=== PATIENT | male | born 1960 | race Caucasian/White ===

== ENCOUNTER 2017-06-07 16:20 | Inpatient (IN) | payer MEDICARE, MEDICAID ==
[~2017-06-07] VITALS: Ht 165.1 cm; Wt 51.7 kg
--- NOTE | 2017-06-07 21:15 | NUR ---
ADMITTED PATIENT IN MED SURG FLOOR UNDER THE CARE OF Marlon WILSON, FROM [facility]. RECORD ALL BELONGINGS, PATIENT HAS TRACH, ILEOSTOMY WITH BAG, GT, SUPRAPUBIC CATH, AND PERMA CATH FOR DIALYSIS. ON GTF, PATIENT ALERT AND ORIENTED, WITH EPISODE OF ANXIETY BY YELLING AND SCREAMING. KEPT COMFORTABLE.
--- NOTE | 2017-06-07 21:15 | NUR ---
CALLED DR RAFIQ Mason VERY ORDERS.
[2017-06-07 21:29] VITALS: BP 103/69
[2017-06-07] MEDS ORDERED: IPRATROPIUM BROMIDE 0.5 MG/2.5 ML NEBU NEB PRN (22:30)
[2017-06-07] MEDS ORDERED: ACETAMINOPHEN 325 MG TABLET ONE (22:40)
[2017-06-07] MEDS ORDERED: VIT-6 PEG (22:43)
[2017-06-07] MEDS ORDERED: METO-295 PEG (22:43)
[2017-06-07] MEDS ORDERED: GABA-534 PEG (22:43)
[2017-06-07] MEDS ORDERED: POLY15DR27 OP (22:43)
[2017-06-07] MEDS ORDERED: ACET-2154 PEG (22:43)
[2017-06-07] MEDS ORDERED: PREG25CA GT (22:43)
[2017-06-07] MEDS ORDERED: ONDA4TAB5 GT (22:43)
[2017-06-07] MEDS ORDERED: METO25TA6 PEG (22:43)
[2017-06-07] MEDS ORDERED: ZINC220C8 PEG (22:43)
[2017-06-07] MEDS ORDERED: ASCO500W7 GT (22:43)
[2017-06-08] MEDS: GABAPENTIN 300 MG CAPSULE GT SCH ×4 (01:10→17:31)
[2017-06-08] MEDS: ACETAMINOPHEN 650 MG/20.3 ML LIQUID UDC GT PRN ×2 (01:12→21:47)
[2017-06-08] MEDS ORDERED: GABAPENTIN 300 MG CAPSULE ONE (01:19)
[2017-06-08 04:00] VITALS: BP 106/70
[2017-06-08] MEDS ORDERED: DEXTROSE 50% 50 ML DISP.SYRIN IV PRN (07:45)
[2017-06-08] MEDS ORDERED: NOVASOURCE RENAL 1000 ML LIQUID GT PRN (07:45)
--- NOTE | 2017-06-08 08:00 | NUR ---
IN BED AWAKE AND VERBALLY RESPONSIVE, NO SIGNS OF DISTRESS OR C/O PAIN WITH TF AT 65 ML/HR. OBSERVED
[2017-06-08] MEDS: INSULIN REGULAR, HUMAN 300 UNIT/3 ML VIAL SQ PRN (08:25)
[2017-06-08] MEDS ORDERED: ACETAMINOPHEN 325 MG TABLET PEG PRN (10:15)
[2017-06-08] MEDS: PREGABALIN 25 MG CAPSULE GT SCH ×2 (10:15→17:31)
[2017-06-08] MEDS ORDERED: POLYVINYL ALCOHOL OPHT DROPS 15 ML BOTTLE OP PRN (10:15)
[2017-06-08] MEDS ORDERED: GABAPENTIN 300 MG CAPSULE GT PRN (10:15)
[2017-06-08] MEDS: METOPROLOL TARTRATE 25 MG TABLET GT SCH ×2 (10:15→21:47)
[2017-06-08] MEDS ORDERED: VITAMIN B COMPLEX 1 TABLET PO PRN (10:15)
[2017-06-08] MEDS ORDERED: INSULIN LISPRO 1000 UNITS/10 ML VIAL(HUMALOG) SQ PRN (10:45)
[2017-06-08] MEDS: ZINC SULFATE 220 MG CAPSULE PEG SCH (11:23)
[2017-06-08] MEDS: ONDANSETRON HCL 4 MG TABLET GT PRN (11:24)
[2017-06-08] MEDS: ASCORBIC ACID 500 MG TABLET GT SCH ×2 (11:24→17:31)
--- NOTE | 2017-06-08 12:00 | NUR ---
PATIENT VOMITED LARGE AMOUNT OF FOOD PREVIOUSLY TAKEN DR GLOVER NOTIFIED WITH ORDERS. TF DECREASED TO 30ML/HR. ROUTINE/PRN MEDS GIVEN WITH HELP
[2017-06-08 12:17] VITALS: BP 112/72
[2017-06-08] MEDS: FOLIC ACID/VITAMIN B COMP W-C TABLET GT SCH (12:45)
[2017-06-08] MEDS: BLOOD SUGAR DIAGNOSTIC 1 EACH STRIP VI SCH ×2 (13:11→18:46)
--- NOTE | 2017-06-08 15:00 | NUR ---
SEEN BY DR PRESCOTT FOR CONSULT SUPRAPUBIC CATHETER REPLACED WITH GAUZE [address], PATIENT TOLERATED WELL
[2017-06-08 15:44] VITALS: BP 128/81
--- NOTE | 2017-06-08 16:43 | NUR ---
SEEN BY ORGAN FIXER WOUND DEBRIDEMENT DONE AT BEDSIDE LEFT ANKLE, SEE NOTES
[2017-06-08] MEDS: NOVASOURCE RENAL 1000 ML LIQUID GT PRN (17:37)
--- NOTE | 2017-06-08 19:15 | NUR ---
RECEIVED IN BED ALERT ORIENTED, NO SOB NO CHEST PAIN NOTED, SUPRA PUBIC CATH DRAINING WITH SMALL AMOUNT OF PALE WHITE COLOR SECRETIONS/URINE, TOLERATE GTF, NO FURTHER EPISODE OF VOMITTING NOTED, TURN AND REPOSITION, KEPT CLEAN AND DRY, PERMA CATH IN PLACE, NO COMPLAIN OF PAIN AT THIS TIME. CALL LIGHT WITHIN REACH.
[2017-06-08 20:49] VITALS: BP 107/69
--- NOTE | 2017-06-09 00:52 | NUR ---
PATIENT REFUSED ACCU CHECK PREFER TO SLEEP.
--- NOTE | 2017-06-09 04:39 | NUR ---
PATIENT SLEPT MOST OF THE NIGHT, GIVEN TYLENOL FOR PAIN AND DISCOMFORT, NO SOB NO CHEST PAIN NOTED, SUPRAPUBIC IN PLACE, DRAINING WITH SMALL AMOUNT OF PALE WHITE DRAINAGE, GT INTACT, TOLERATE GTF, NO NAUSEA OR VOMITTING NOTED, ILEOSTOMY DRAINING WITH GREENISH WATERY COLOR BM IN MODERATE AMOUNT, NO S/S OF DISTRESS.
[2017-06-09] MEDS: BLOOD SUGAR DIAGNOSTIC 1 EACH STRIP VI SCH ×5 (06:21→23:53)
[2017-06-09 06:38] LABS: BASOPHILS # (AUTO) 0.2 K/uL (0.0-8.0); EOSINOPHILS # (AUTO) 0.9 K/uL (0.0-0.7); EOSINOPHILS % (AUTO) 5.7 % (0.0-7.0); HEMATOCRIT 29.3 % (40-50); HEMOGLOBIN 9.5 G/DL (14.0-18.0); LYMPHOCYTES # (AUTO) 0.9 K/UL (0.8-4.8); LYMPHOCYTES % (AUTO) 5.8 % (20.5-51.5); MEAN CORPUSCULAR HEMOGLOBIN 32.8 UUG (27.0-31.0); MEAN CORPUSCULAR HGB CONC 33 g/dL (32.0-37.0); MONOCYTES # (AUTO) 2.4 K/UL (0.1-1.30); MONOCYTES % (AUTO) 15.7 % (0.0-11.0); NEUTROPHILS # (AUTO) 11.2 K/UL (1.8-8.9); NEUTROPHILS % (AUTO) 71.8 % (38.5-71.5); PLATELET COUNT (AUTO) 632 K/UL (150-450); WHITE BLOOD COUNT (AUTO) 15.6 K/UL (4.0-11.2)
[2017-06-09 06:51] VITALS: BP 110/74
[2017-06-09 07:03] LABS: BILIRUBIN,TOTAL 0.3 mg/dL (0.2-1.0); CREATININE 5.8 mg/dL (0.6-1.3); MAGNESIUM 2.8 mg/dL (1.8-2.4); POTASSIUM 5.9 mmol/L (3.5-5.1); TOTAL PROTEIN, SERUM 8.8 g/dL (6.4-8.2)
[2017-06-09 07:08] LABS: PHOSPHOROUS 9.4 mg/dL (2.5-4.9)
--- NOTE | 2017-06-09 07:10 | NUR ---
MD answering service notified of critical lab values. carbon dioxide operator notified. Pt. sleeping currently and acute distress noted. Will continue to monitor.
--- NOTE | 2017-06-09 07:56 | NUR ---
VOICE COACH AT BS CHECKING PT /LABS.
[2017-06-09 08:02] LABS: EOSINOPHILS % (MANUAL) 5 % (0-8); LYMPHOCYTES % (MANUAL) 12 % (20-40); MONOCYTES % (MANUAL) 9 % (2-10); NEUTROPHILS % (MANUAL) 74 % (42-75)
[2017-06-09] MEDS: NOVASOURCE RENAL 1000 ML LIQUID GT PRN (08:18)
--- NOTE | 2017-06-09 08:30 | NUR ---
DIALYSIS NURSE AT STARTING DIALYSIS. PT. IS RESTING COMFORTABLY. REPOSITIONED. ILEOSTOMY AND SUPRAPUBIC CATHETER INTACT. G TUBE CHECKED FOR PATENCY.
--- NOTE | 2017-06-09 09:00 | NUR ---
TUBE FEEDING OFF DUE TO LOW BP DURING DIALYSIS - HOB LESS THAN 30 DEGREES. G- CHECK FOR RESIDUAL AND FLUSHED.
[2017-06-09] MEDS ORDERED: ALBUMIN HUMAN 25% 100 ML IV PRN (09:30)
[2017-06-09] MEDS: METOPROLOL TARTRATE 25 MG TABLET GT SCH ×2 (11:22→21:08)
[2017-06-09] MEDS: ASCORBIC ACID 500 MG TABLET GT SCH ×2 (11:23→16:23)
[2017-06-09] MEDS: GABAPENTIN 300 MG CAPSULE GT SCH ×3 (11:24→16:24)
[2017-06-09] MEDS: ZINC SULFATE 220 MG CAPSULE PEG SCH (11:24)
[2017-06-09] MEDS: PREGABALIN 25 MG CAPSULE GT SCH ×2 (11:24→16:24)
[2017-06-09] MEDS: FOLIC ACID/VITAMIN B COMP W-C TABLET GT SCH (11:24)
--- NOTE | 2017-06-09 11:39 | NUR ---
PT. FINISHED DIALYSIS. TOLERATED WELL. LOW BP REPORTED BY DR. GIBSON BY LUC, FLATCAR WHACKER. SEE DIALYIS NOTE. PT. IN NO ACUTE DISTRESS. BP AT 79/49. DR. GIBSON NOTIFIED. NO NEW ORDERS. TUBE FEEDING RESUMED.
[2017-06-09 12:00] VITALS: BP 79/49
[2017-06-09] MEDS: ONDANSETRON HCL 4 MG TABLET GT PRN ×2 (15:52→23:46)
--- NOTE | 2017-06-09 15:53 | NUR ---
PT. TOLERATING LUNCH. TUBE FEEDING AT 30 CC/HR. PT. JUST HAD AN ADDITIONAL YOGURT AND HAD EMESIS AND NAUSEA. ZOFRAN SL GIVEN. CONTINUE TO MONITOR.
[2017-06-09 16:37] VITALS: BP 86/53
--- NOTE | 2017-06-09 18:00 | NUR ---
PT. HAD BEEN DRINKING A JUICE AND SHORTY AFTERWARDS HAD AN EMESIS. COMPLETE BED BATH. COLOSTOMY BAG CHANGED DUE TO LEAKAGE. SUPRAPUBIC CATHETER SITE CLEANED AND DRESSING APPLIED. URINE SCANT WITH SOME BLOODY, CLOUDY DISCHARGE. R.T. CHANGED INNER CANNULA AND TRACH COLLAR AND SUCTIONED ONE TIME AT END OF SHIFT. TUBE FEEDING ON HOLD AT END OF SHIFT UNTIL NIGHT NURSE ASSESSMENT. PT. IN NO ACUTE DISTRESS AT REPORT TIME.
--- NOTE | 2017-06-09 19:30 | NUR ---
PT RECEIVED IN BED, AWAKE. A/OX2. ABLE TO MAKE NEEDS KNOWN. PT V/S STABLE. NO ACUTE DISTRESS NOTED. NO COMPLAINTS OF PAIN AT THIS TIME. PT FEEDING HELD, WILL MONITOR FOR VOMITING. OSTOMY EMPTY. STOMA C/D/I. ILEOSTOMY HAS NO RESIDUAL. SAFETY MEASURE IMPLEMENTED. CALL LIGHT WITHIN REACH. WILL CONTINUE TO MONITOR.
[2017-06-09 19:37] VITALS: BP 111/70
--- NOTE | 2017-06-09 20:02 | NUR ---
PT STATES HE FEELS ANXIOUS AND UNEASY. PT ALSO COMPLAINS OF BEING UNABLE TO SLEEP DURING THE NIGHT. WILL NOTIFY .
[2017-06-09] MEDS ORDERED: TEMAZEPAM 15 MG CAPSULE PO SCH (21:00)
[2017-06-09] MEDS ORDERED: TEMAZEPAM 15 MG CAPSULE ONE (21:16)
--- NOTE | 2017-06-09 21:40 | NUR ---
PT TUBE FEEDING CONTINUED TO BE HELD. PT HAD EPISODE OF EMESIS. PT ROOM CLEANED. LINEN CHANGED.
--- NOTE | 2017-06-09 21:50 | NUR ---
URINE SAMPLE RETRIEVED. URINE RED, MUCOUS LIKE, AND THICK. PT URINE SENT TO LAB.
--- NOTE | 2017-06-10 00:10 | NUR ---
PATIENT VOMITED BROWNISH CONTENTS. IT APPEARS THAT HE IS NOT TOLERATING THE TUBE FEEDING. STOPPED THE TUBE FEEDING. WILL REVIEW ORDERS FOR N/V. Addendum: 06/11/17 at 0536 by ALFRED GRAHAM RN WRONG DATE
[2017-06-10] MEDS: LORAZEPAM 2 MG/1 ML VIAL IV PRN (03:30)
[2017-06-10] MEDS ORDERED: LORAZEPAM 2 MG/1 ML VIAL ONE (03:39)
[2017-06-10 04:00] VITALS: BP 90/60
--- NOTE | 2017-06-10 06:30 | NUR ---
END OF SHIFT NOTES. PT SLEPT INTERMITTENTLY THROUGHOUT SHIFT. V/S STABLE. NO ACUTE DISTRESS NOTED. NO COMPLAINTS OF PAIN THROUGHOUT SHIFT. IV HEP-LOCK. NEEDS ATTENDED. SAFETY MAINTAINED. CALL LIGHT WITHIN REACH.
[2017-06-10] MEDS: BLOOD SUGAR DIAGNOSTIC 1 EACH STRIP VI SCH ×3 (06:44→17:27)
[2017-06-10 07:07] LABS: BASOPHILS # (AUTO) 0.1 K/uL (0.0-8.0); BASOPHILS % (AUTO) 0.6 % (0.0-2.0); EOSINOPHILS # (AUTO) 0.3 K/uL (0.0-0.7); EOSINOPHILS % (AUTO) 1.6 % (0.0-7.0); HEMATOCRIT 31.1 % (40-50); LYMPHOCYTES # (AUTO) 0.6 K/UL (0.8-4.8); LYMPHOCYTES % (AUTO) 3.6 % (20.5-51.5); MEAN CORPUSCULAR HEMOGLOBIN 32.5 UUG (27.0-31.0); MEAN CORPUSCULAR HGB CONC 32 g/dL (32.0-37.0); MEAN CORPUSCULAR VOLUME 100.8 FL (82.0-92.0); MONOCYTES # (AUTO) 2.3 K/UL (0.1-1.30); MONOCYTES % (AUTO) 13.6 % (0.0-11.0); NEUTROPHILS # (AUTO) 13.6 K/UL (1.8-8.9); NEUTROPHILS % (AUTO) 80.6 % (38.5-71.5); PLATELET COUNT (AUTO) 600 K/UL (150-450); RED BLOOD CELL COUNT(AUTO) 3.09 MIL/UL (4.7-6.1); WHITE BLOOD COUNT (AUTO) 16.9 K/UL (4.0-11.2)
[2017-06-10 07:26] LABS: BILIRUBIN,TOTAL 0.5 mg/dL (0.2-1.0); CREATININE 4.4 mg/dL (0.6-1.3); MAGNESIUM 2.5 mg/dL (1.8-2.4); POTASSIUM 4.1 mmol/L (3.5-5.1); TOTAL PROTEIN, SERUM 9.1 g/dL (6.4-8.2)
[2017-06-10 07:31] LABS: PHOSPHOROUS 8.2 mg/dL (2.5-4.9)
[2017-06-10 08:01] LABS: BAND % (MANUAL) 1 % (0-10); EOSINOPHILS % (MANUAL) 1 % (0-8); LYMPHOCYTES % (MANUAL) 11 % (20-40); MONOCYTES % (MANUAL) 9 % (2-10); NEUTROPHILS % (MANUAL) 78 % (42-75)
--- NOTE | 2017-06-10 08:45 | NUR ---
PT.AWAKE AND ALERT. SISTER CALLED REGARDING PT. STATUS. PT. DENIES PAIN, NAUSEA OR SOB. PEG CLAMPED. NO RESIDUAL PRESENT. PT. REPOSITIONED AND HOB AT 30 DEGREES. RESTART TUBE FEEDING AT 30 CC/HR. CONTINUE TO MONITOR.
[2017-06-10] MEDS: METOPROLOL TARTRATE 25 MG TABLET GT SCH ×2 (09:00→21:00)
[2017-06-10] MEDS: PREGABALIN 25 MG CAPSULE GT SCH ×2 (09:05→17:26)
[2017-06-10] MEDS: GABAPENTIN 300 MG CAPSULE GT SCH ×3 (09:05→17:26)
[2017-06-10] MEDS: ASCORBIC ACID 500 MG TABLET GT SCH ×2 (09:05→17:26)
[2017-06-10] MEDS: ZINC SULFATE 220 MG CAPSULE PEG SCH (09:05)
[2017-06-10] MEDS: FOLIC ACID/VITAMIN B COMP W-C TABLET GT SCH (09:05)
[2017-06-10 11:04] VITALS: BP 103/70
[2017-06-10 15:07] VITALS: BP 103/65
--- NOTE | 2017-06-10 15:45 | NUR ---
PT. HAD A SMALL LUNCH. DRINKING SIPS OF WATER AND JUICE AND TOLERATING WELL. PT. WATCHING TV AND REMAINING CALM AND COOPERATIVE WITH CARE. TUBE FEEDING TURNED BACK ON NOW AND RATE INCREASED TO 45 CC/HR PER DIETARY RECOMMENDATION. CONTINUE TO MONITOR.
--- NOTE | 2017-06-10 17:01 | NUR ---
Clinical pharmacy note-Gentamicin dosing per pharmacy Subjective: To start Gentamicin dosing on this 57 year old HD patient for UTI with indwelling suprapubic catheter. Patient had previous history of GNR in UC. Allergic to PCN an sulfa Objective: BUN 62/ Scr 4.4 WBC 16.9 Temp 97.7 Assessment/Plan: Will give Gentamicin 100mg IV X1(1.7mg/kg based on actual body wt of 58.967kg). ABW is less than IBW( 61.5kg). Will follow the HD schedule to dose by pre-HD level(not ordered yet). Will follow daily.
[2017-06-10] MEDS: Z GUARD REMEDY PASTE 57 GM TUBE TOP PRN (17:26)
[2017-06-10] MEDS ORDERED: GENTAMICIN SULFATE INJ 100 MG in IV DEXTROSE 5% 100 ML IV ONE (18:00)
[2017-06-10] MEDS: ONDANSETRON HCL 4 MG TABLET GT PRN (18:06)
--- NOTE | 2017-06-10 18:44 | NUR ---
1800 Pt had one emesis. Zofran given per jan. Nausea and vomiting settled. Tube feeding turned off for further assessment. Pt. resting comfortably. No acute distress. All needs attended.
--- NOTE | 2017-06-10 19:30 | NUR ---
RECEIVED PATIENT LAYING COMFORTABLY IN BED. AWAKE A&O X'S 2. ABLE TO MAKE NEEDS KNOWN. NO ACUTE DISTRESS NOTED. NO COMPLAINTS OF PAIN. PATIENT REQUESTED SLEEPING PILL. PT FEEDING HELD AT THIS TIME D/T EARLIER EPISODE OF VOMITING. OSTOMY EMPTY. STOMA IS PINK IN COLOR ILEOSTOMY HAS NO RESIDUAL. SAFETY INITIATED. CALL LIGHT WITHIN REACH. WILL CLOSELY MONITOR.
[2017-06-10 20:00] VITALS: BP 87/58
[2017-06-10] MEDS: TEMAZEPAM 15 MG CAPSULE PO PRN (21:02)
[2017-06-10] MEDS: Z GUARD REMEDY PASTE 57 GM TUBE TOP SCH (21:04)
--- NOTE | 2017-06-10 21:15 | NUR ---
CHECKED FOR RESIDUAL AND PLACEMENT. STARTED TUBE FEEDING AT 30 CC/HR.
--- NOTE | 2017-06-11 00:10 | NUR ---
PATIENT VOMITED BROWNISH CONTENTS. STOPPED THE TUBE FEEDING. WILL REVIEW ORDERS FOR N/V.
[2017-06-11] MEDS: ONDANSETRON HCL 4 MG TABLET GT PRN ×2 (00:11→18:10)
[2017-06-11] MEDS: METOCLOPRAMIDE HCL 10 MG TABLET PEG PRN ×3 (00:18→22:41)
[2017-06-11] MEDS: BLOOD SUGAR DIAGNOSTIC 1 EACH STRIP VI SCH ×4 (00:23→18:27)
[2017-06-11] MEDS: ACETAMINOPHEN 650 MG/20.3 ML LIQUID UDC GT PRN ×2 (00:28→21:36)
[2017-06-11] MEDS: INSULIN REGULAR, HUMAN 300 UNIT/3 ML VIAL SQ PRN (00:32)
--- NOTE | 2017-06-11 06:00 | NUR ---
CHANGED OSTOMY BAG STOOL 300 CC
[2017-06-11 06:34] VITALS: BP 68/48
--- NOTE | 2017-06-11 06:46 | NUR ---
PTNT B/P RUNNING LOW: 63/43 68/48 73/48 NOT TOLERATING TUBE FEEDING LOW URINE OUTPUT PAGED DR. CONROY
--- NOTE | 2017-06-11 07:00 | NUR ---
B/P 72/44 HR 79 STARTED TUBE FEEDING AGAIN AT 20 CC
--- NOTE | 2017-06-11 07:00 | NUR ---
PAGED DR. CONROY FOR THE SECOND TIME TO REPORT B/P
[2017-06-11 07:05] LABS: BASOPHILS # (AUTO) 0.3 K/uL (0.0-8.0); BASOPHILS % (AUTO) 1.7 % (0.0-2.0); EOSINOPHILS # (AUTO) 0.2 K/uL (0.0-0.7); EOSINOPHILS % (AUTO) 0.9 % (0.0-7.0); HEMATOCRIT 30.4 % (40-50); HEMOGLOBIN 9.9 G/DL (14.0-18.0); LYMPHOCYTES # (AUTO) 0.7 K/UL (0.8-4.8); LYMPHOCYTES % (AUTO) 4.3 % (20.5-51.5); MEAN CORPUSCULAR HEMOGLOBIN 32.3 UUG (27.0-31.0); MEAN CORPUSCULAR HGB CONC 33 g/dL (32.0-37.0); MEAN CORPUSCULAR VOLUME 99.3 FL (82.0-92.0); MONOCYTES # (AUTO) 2.1 K/UL (0.1-1.30); MONOCYTES % (AUTO) 12.4 % (0.0-11.0); NEUTROPHILS # (AUTO) 13.8 K/UL (1.8-8.9); NEUTROPHILS % (AUTO) 80.7 % (38.5-71.5); PLATELET COUNT (AUTO) 613 K/UL (150-450); RED BLOOD CELL COUNT(AUTO) 3.06 MIL/UL (4.7-6.1); WHITE BLOOD COUNT (AUTO) 17.1 K/UL (4.0-11.2)
[2017-06-11 07:30] LABS: BAND % (MANUAL) 1 % (0-10); EOSINOPHILS % (MANUAL) 2 % (0-8); LYMPHOCYTES % (MANUAL) 8 % (20-40); MONOCYTES % (MANUAL) 11 % (2-10); NEUTROPHILS % (MANUAL) 78 % (42-75)
[2017-06-11 07:35] LABS: BILIRUBIN,TOTAL 0.3 mg/dL (0.2-1.0); CREATININE 5.9 mg/dL (0.6-1.3); GENTAMICIN,RANDOM 6.1 ug/mL (4.0-8.0); MAGNESIUM 2.7 mg/dL (1.8-2.4); POTASSIUM 5.1 mmol/L (3.5-5.1); TOTAL PROTEIN, SERUM 8.9 g/dL (6.4-8.2)
--- NOTE | 2017-06-11 07:41 | NUR ---
PATIENT SLEPT INTERMITTENTLY T/O THE NIGHT. NO ACUTE DISTRESS NOTED. LAZO CARE. OSTOMY CHANGED. TRACH CARE. B/P RUNS LOW. NOT TOLERATING TUBE FEEDING. EMESIS X'S 2. PAGED MD. NO CALL BACK. ENDORSED AM NURSE. TURN AND REPOSITIONED. ALL NEEDS MET. ALL MEDS GIVEN ORDERED. ALL SAFETY AND COMFORT MEASURES MAINTAINED T/O SHIFT. CALL LIGHT WITHIN REACH. LAST BS WAS 96, NO COVERAGE.
--- NOTE | 2017-06-11 08:00 | NUR ---
0700 PT. RESTING IN BED. BP CHECKED AND MD CALLED RE. BP IN LOW 70'S. TF AT 20 CC/HR. 0800 DIALYSIS NURSE AT BEDSIDE. DIALYSIS FINISHED AT 1130 PT. TOLERATING WELL. TUBE FEEDING OFF DURING DIALYSIS. MEDS GIVEN PER JAN. 1199 TF STARTED AGAIN 30 CC/ HR AND HOLDING LUNCH PER RECOMMENDATION OF BREAD ICER DUE TO EMESIS ON PREVIOUS SHIFTS. ALL NEEDS ATTENDED.
[2017-06-11] MEDS ORDERED: ALBUMIN HUMAN 25% 100 ML IV ONE (08:45)
[2017-06-11] MEDS: METOPROLOL TARTRATE 25 MG TABLET GT SCH ×2 (09:00→21:00)
[2017-06-11 11:50] VITALS: BP 84/51
[2017-06-11] MEDS: ASCORBIC ACID 500 MG TABLET GT SCH ×2 (12:13→18:11)
[2017-06-11] MEDS: PREGABALIN 25 MG CAPSULE GT SCH ×2 (12:13→18:10)
[2017-06-11] MEDS: FOLIC ACID/VITAMIN B COMP W-C TABLET GT SCH (12:14)
[2017-06-11] MEDS: ZINC SULFATE 220 MG CAPSULE PEG SCH (12:15)
[2017-06-11] MEDS: Z GUARD REMEDY PASTE 57 GM TUBE TOP SCH ×2 (12:15→21:25)
[2017-06-11] MEDS: GABAPENTIN 300 MG CAPSULE GT SCH ×3 (12:15→18:10)
[2017-06-11] MEDS: ALBUTEROL SULFATE 2.5 MG/3 ML NEBU NEB PRN (14:03)
[2017-06-11] MEDS: NOVASOURCE RENAL 1000 ML LIQUID GT PRN (14:04)
[2017-06-11 15:30] VITALS: BP 96/62
--- NOTE | 2017-06-11 16:08 | NUR ---
Clinical pharmacy note-Gentamicin dosing per pharmacy Subjective: To continue Gentamicin dosing on this 57 year old HD patient for UTI with indwelling suprapubic catheter. GNR in UC. Allergic to PCN an sulfa Objective: BUN 81/ Scr 5.9 WBC 17.1 Temp 97.8 Gentamicin pre-HD level was 6.1 today at 0600 Assessment/Plan: Even though patient was dialyzed today, no dose was given due to high fall off random level. Will continue to dose by pre-HD level(not ordered yet) . Will follow dialysis schedule daily for further dosing.
[2017-06-11] MEDS: CALCIUM ACETATE 667 MG CAPSULE PO SCH (18:11)
--- NOTE | 2017-06-11 18:59 | NUR ---
1600 TF INCREASED TO 40 CC /PER HOUR PER PHOTOGRAPHS CURATOR RECOMMENDATION. 1730 PT. HAD AN EPISODE OF EMESIS. ZOFRAN GIVEN. TF OFF. ALL NEEDS ATTENDED. PT. STATES RELIEF OF NAUSEA AT END OF SHIFT. PT. RESTING COMFORTABLY. NO ACUTE DISTRESS NOTED.
[2017-06-11 19:00] VITALS: BP 86/59
--- NOTE | 2017-06-11 19:30 | NUR ---
RECEIVED PATIENT LAYING IN BED COMFORTABLY. NO ACUTE DISTRESS NOTED. SAFETY INITIATED. CALL LIGHT WITHIN REACH. HEAD TO TOE ASSESSMENT DONE. ABLE TO MAKE NEEDS KNOWN. TURN AND REPOSITIONED. WILL CONTINUE TO MONITOR.
[2017-06-11] MEDS: TEMAZEPAM 15 MG CAPSULE PO PRN (21:36)
--- NOTE | 2017-06-11 22:52 | NUR ---
PATIENT HAD AN EPISODE OF VOMITING TONIGHT. GAVE VERITO.
[2017-06-12] VITALS (25 sets, daily range): BP systolic 71–111; BP diastolic 29–74
[2017-06-12] MEDS: ONDANSETRON HCL 4 MG TABLET GT PRN ×3 (00:38→19:06)
[2017-06-12] MEDS: BLOOD SUGAR DIAGNOSTIC 1 EACH STRIP VI SCH ×4 (00:40→17:28)
--- NOTE | 2017-06-12 01:35 | NUR ---
STARTED TUBE FEEDING AT 15 CC/HR. WILL TITRATE UP IF PATIENT TOLERATES THE FEEDING AND IF NO EPISODES OF VOMITING. GAVE ZOFRAN PRIOR TO TUBE FEEDING AT 0100. WILL CONTINUE TO MONITOR.
--- NOTE | 2017-06-12 02:58 | NUR ---
STOPPED TUBE FEEDING, PATIENT VOMITING.
[2017-06-12] MEDS: METOCLOPRAMIDE HCL 10 MG TABLET PEG PRN (03:05)
[2017-06-12] MEDS: ACETAMINOPHEN 650 MG/20.3 ML LIQUID UDC GT PRN ×2 (03:05→17:13)
--- NOTE | 2017-06-12 05:41 | NUR ---
Pt found with dislodge by RN Sachi. Trach tube changed by two RT's and RN Sachi at bedside. No bleeding noticed. Back up trach replaced.
--- NOTE | 2017-06-12 05:55 | NUR ---
TRACH DISLODGE. RT ALERTED. RE-INSERTED.
--- NOTE | 2017-06-12 06:42 | NUR ---
PATIENT SLEPT INTERMITTENTLY T/O THE NIGHT. PATIENT HAD A TOTAL OF 3 EMESIS EPISODES. TUBE FEEDING STOPPED FOR NOW. TRACH WAS DISLODGE BUT RE-INSERTED BY RT. SUPRAPUBIC CATHETER CARE, ILEOSTOMY CARE PROVIDED, TRACH CARE PROVIDED. TURNED AND REPOSITIONED Q2H. V/S STABLE. NO ACUTE DISTRESS NOTED. COMFORT AND SAFETY MAINTAINED T/O SHIFT. ALL NEEDS MET. ALL MEDS GIVEN ORDERED. CALL LIGHT WITHIN REACH.
[2017-06-12] MEDS ORDERED: IV NORMAL SALINE 250 ML IV ONE (07:45)
--- NOTE | 2017-06-12 07:47 | NUR ---
PAGED DR. CONROY BECAUSE OF B/P WAS LOW 72/44 HR 79. SILAS TAI GOT ON THE PHONE WITH DR. CONROY. SEE ORDERS. HELD 2 UNITS OF INSULIN BECAUSE NPO AND NOT TOLERATING FEEDINGS.
[2017-06-12] MEDS: CALCIUM ACETATE 667 MG CAPSULE PO SCH ×3 (08:00→17:12)
--- NOTE | 2017-06-12 08:00 | NUR ---
TRANSFER PT TO CCU IF BP DOES NOT GO UP TO 80 FOR LEVOPHED DRIP
--- NOTE | 2017-06-12 08:00 | NUR ---
NS IV BOLUS STARTED, LETHARGIC , FEELING VERY COLD WARM BLANKET GIVEN T 97.9, O2 SAT 100% NO SIGNS OF DISTRESS. OBSERVED
[2017-06-12] MEDS: METOPROLOL TARTRATE 25 MG TABLET GT SCH ×2 (08:04→21:00)
[2017-06-12] MEDS: PREGABALIN 25 MG CAPSULE GT SCH ×2 (08:30→17:12)
[2017-06-12] MEDS: FOLIC ACID/VITAMIN B COMP W-C TABLET GT SCH (08:30)
[2017-06-12] MEDS: ASCORBIC ACID 500 MG TABLET GT SCH ×2 (08:31→17:13)
[2017-06-12] MEDS: ZINC SULFATE 220 MG CAPSULE PEG SCH (08:31)
[2017-06-12] MEDS: GABAPENTIN 300 MG CAPSULE GT SCH ×3 (08:31→17:12)
[2017-06-12] MEDS: Z GUARD REMEDY PASTE 57 GM TUBE TOP SCH ×2 (08:32→20:58)
--- NOTE | 2017-06-12 09:00 | NUR ---
O900 MEDS NOT GIVEN PT STILL C/O NAUSEA. BP 74/53, WARM AND DRY WILL ATTEMPT TO START FEEDIMG. AM CARE AND WOUND CARE DONE
--- NOTE | 2017-06-12 10:22 | NUR ---
Clinical pharmacy note-Gentamicin dosing per pharmacy Subjective: To continue Gentamicin dosing on this 57 year old HD patient for UTI with indwelling suprapubic catheter. GNR in UC. Allergic to PCN an sulfa Objective: BUN 81/Scr 5.9 (06/11) WBC 17.1 (06/11) Temp 97.9 Assessment/Plan: As per HD RN, no HD has been scheduled for today. No dose shall be due today. Will continue to dose by pre-HD level(not ordered yet). Will follow dialysis schedule daily for further dosing.
[2017-06-12] MEDS ORDERED: IV NORMAL SALINE 500 ML IV ONE (11:30)
--- NOTE | 2017-06-12 11:30 | NUR ---
BP 79/34, HR 89 WARM AND DRY SKIN, DENIES NAUSEA RIGHT NOW WITH THE ZOFRAN, TOLERATING FEEDING AT 30 ML/HR HOB ELEVATED [address] CONROY AGAIN NOTIFEID WITH LOW BP WITH ORDERS.
--- NOTE | 2017-06-12 11:50 | NUR ---
NS IV 500 ML STARTED. OBSERVE
--- NOTE | 2017-06-12 12:34 | NUR ---
SBP 72/39, HR 88 ALERT AND ORIENTED X3. HOUSEHOLD COORDINATOR NOTIFIED WITH OF NEED FOR CCU BED.
--- NOTE | 2017-06-12 12:50 | NUR ---
PT. TRANSPORTED TO CCU 2 WITHOUT INCIDENT NOTED. COOL AEROSOL RESUMED TO 40%.
--- NOTE | 2017-06-12 12:50 | NUR ---
REPORT GIVEN TO CCU RN
--- NOTE | 2017-06-12 13:00 | NUR ---
PT TRANSFERRED TO CCU FOR LEVOPHED PER DR CONROY
--- NOTE | 2017-06-12 16:15 | NUR ---
Pt reassignment and full SBAR report received by SILAS Rogers.
--- NOTE | 2017-06-12 19:15 | NUR ---
Report received. Patient AAO, anxious, demanding. Vomited small amounts of pale fluids. Was medicated with Zofran by veronika RN. Medicated with Ativan IV. Patient requesting something for sleep. Advised appropriately. Addendum: 06/12/17 at 2227 by ROSARIO DURNA RN Amended: Links added. Addendum: 06/12/17 at 2235 by ROSARIO DURAN RN Amended: Links added. Addendum: 06/12/17 at 2236 by ROSARIO DURAN RN Amended: Links added.
[2017-06-12] MEDS: LORAZEPAM 2 MG/1 ML VIAL IV PRN (19:19)
--- NOTE | 2017-06-12 19:45 | NUR ---
PM care rendered. Assessment completed. Trache with aerosol mask with 10 L O2. Sat 100%. GT feedings at 30 ml/H; No residual. Turned to sides; skin care provided. Addendum: 06/12/17 at 2235 by ROSARIO DURAN RN Amended: Links added. Addendum: 06/12/17 at 2235 by ROSARIO DURAN RN Amended: Links added.
--- NOTE | 2017-06-12 21:00 | NUR ---
BP 82/49. Attempted to insert another IV but futile. Patient sleeping but arouses to name. Addendum: 06/12/17 at 2211 by ROSARIO DURAN RN Amended: Links added. Addendum: 06/13/17 at 0124 by ROSARIO DURAN RN Amended: Links added.
--- NOTE | 2017-06-12 21:30 | NUR ---
Remains hypotensive, skin warm and dry. Call placed to Dr. Ward; order for PICC line insertion received. Addendum: 06/12/17 at 2214 by ROSARIO DURAN RN Amended: Links added.
--- NOTE | 2017-06-12 21:40 | NUR ---
Message left to patient's sister Nannette to obtain consent for PICC line insertion. Started on Levophed drip at 1 mcg/min to R hand IV. Will monitor site closely.
[2017-06-12] MEDS: NOREPINEPHRINE BITARTRATE 16 MG in IV DEXTROSE 5% 500 ML IV PRN (21:42)
--- NOTE | 2017-06-12 21:55 | NUR ---
Patient's sister Nannette called back; consent for PICC line insertion obtained.
--- NOTE | 2017-06-12 22:00 | NUR ---
Beer Brewer informed of PICC line insertion. Spoke to Yasmani; will be here to insert line.
--- NOTE | 2017-06-12 22:30 | NUR ---
GT feedings held. HOB down. Patient remains arouses to name and answers questions well. Levophed drip titrated for BP support. Addendum: 06/12/17 at 2252 by ROSARIO DURAN RN Amended: Links added.
--- NOTE | 2017-06-12 23:30 | NUR ---
Giovani ROSEN from PICC line team here. PICC line insertion procedure discussed with patient. Levophed drip at 5 mcg/min. BPs in the 80's-90's systole.
[2017-06-13] VITALS (65 sets, daily range): BP systolic 84–148; BP diastolic 35–108
--- NOTE | 2017-06-13 | NUR ---
Midline successfully inserted by Giovani ROSEN. Patient awake, nauseated. Vomited scant amount of clear fluids. Asking for sleeping pill. PCXR done for midline placement. Medicated with Restoril and Reglan. [id number]. No coverage given as GT feedings was held due to hypotension.
[2017-06-13] MEDS: TEMAZEPAM 15 MG CAPSULE PO PRN ×2 (00:10→22:12)
[2017-06-13] MEDS: METOCLOPRAMIDE HCL 10 MG TABLET PEG PRN ×2 (00:10→20:24)
--- NOTE | 2017-06-13 00:15 | NUR ---
As per Giovani ROSEN it's ok to use Midline now. He was not able to advanced catheter due to Permacath obstruction. Refer to his procedure notes for details.
[2017-06-13] MEDS: BLOOD SUGAR DIAGNOSTIC 1 EACH STRIP VI SCH ×5 (00:44→23:37)
--- NOTE | 2017-06-13 01:00 | NUR ---
Levophed drip now at 5 mcg/min. BPs monitored closely. HOB elevated above 30 degrees. GT feedings restarted at 30 ml/H. Addendum: 06/13/17 at 0312 by ROSARIO DURAN RN Amended: Links added.
--- NOTE | 2017-06-13 04:00 | NUR ---
Am care done. Patient cooperative; asking questions re: BP, HR, etc. Informed. Remains on Levophed drip at 5 mcg/min. Addendum: 06/13/17 at 0700 by ROSARIO DURAN RN Amended: Links added.
[2017-06-13 04:51] LABS: BASOPHILS # (AUTO) 0.1 K/uL (0.0-8.0); BASOPHILS % (AUTO) 0.9 % (0.0-2.0); EOSINOPHILS # (AUTO) 0.2 K/uL (0.0-0.7); EOSINOPHILS % (AUTO) 1.2 % (0.0-7.0); HEMATOCRIT 29.9 % (40-50); HEMOGLOBIN 9.6 G/DL (14.0-18.0); LYMPHOCYTES # (AUTO) 0.7 K/UL (0.8-4.8); LYMPHOCYTES % (AUTO) 4.7 % (20.5-51.5); MEAN CORPUSCULAR HEMOGLOBIN 32.2 UUG (27.0-31.0); MEAN CORPUSCULAR HGB CONC 32 g/dL (32.0-37.0); MEAN CORPUSCULAR VOLUME 100.3 FL (82.0-92.0); MONOCYTES # (AUTO) 2.3 K/UL (0.1-1.30); MONOCYTES % (AUTO) 14.4 % (0.0-11.0); NEUTROPHILS # (AUTO) 12.5 K/UL (1.8-8.9); NEUTROPHILS % (AUTO) 78.8 % (38.5-71.5); PLATELET COUNT (AUTO) 609 K/UL (150-450); RED BLOOD CELL COUNT(AUTO) 2.98 MIL/UL (4.7-6.1); WHITE BLOOD COUNT (AUTO) 15.8 K/UL (4.0-11.2)
[2017-06-13 05:24] LABS: BILIRUBIN,TOTAL 0.4 mg/dL (0.2-1.0); CREATININE 5.6 mg/dL (0.6-1.3); MAGNESIUM 2.4 mg/dL (1.8-2.4); POTASSIUM 3.9 mmol/L (3.5-5.1); TOTAL PROTEIN, SERUM 8.7 g/dL (6.4-8.2)
[2017-06-13 05:28] LABS: PHOSPHOROUS 9.7 mg/dL (2.5-4.9)
[2017-06-13] MEDS: INSULIN REGULAR, HUMAN 300 UNIT/3 ML VIAL SQ PRN ×2 (06:14→23:41)
[2017-06-13] MEDS: Z GUARD REMEDY PASTE 57 GM TUBE TOP PRN (06:53)
[2017-06-13] MEDS: FOLIC ACID/VITAMIN B COMP W-C TABLET GT SCH (07:49)
[2017-06-13] MEDS: CALCIUM ACETATE 667 MG CAPSULE PO SCH ×3 (07:49→17:08)
[2017-06-13] MEDS: ZINC SULFATE 220 MG CAPSULE PEG SCH (07:50)
[2017-06-13] MEDS: PREGABALIN 25 MG CAPSULE GT SCH ×2 (07:50→17:08)
[2017-06-13] MEDS: ASCORBIC ACID 500 MG TABLET GT SCH ×2 (07:50→17:08)
[2017-06-13] MEDS: GABAPENTIN 300 MG CAPSULE GT SCH ×3 (07:50→17:08)
[2017-06-13] MEDS: METOPROLOL TARTRATE 25 MG TABLET GT SCH ×2 (07:51→21:00)
[2017-06-13] MEDS: Z GUARD REMEDY PASTE 57 GM TUBE TOP SCH ×2 (07:51→20:32)
[2017-06-13] MEDS: ONDANSETRON HCL 4 MG TABLET GT PRN (09:43)
--- NOTE | 2017-06-13 10:17 | NUR ---
Clinical pharmacy note-Gentamicin dosing per pharmacy Subjective: To continue Gentamicin dosing on this 57 year old HD patient for UTI with indwelling suprapubic catheter. GNR in UC. Allergic to PCN an sulfa Objective: BUN 69/ Scr 5.6 WBC 15.8 Temp 97 Gentamicin pre-HD level was 1.7 today at 0600 Assessment/Plan: HD has been scheduled for today per HD RN. Since gentamicin pre-HD level is 1.7 mcg/ml, will give gentamicin 100 mg IVPB x1 today post HD. Will continue to dose by pre-HD level(not ordered yet) . Will follow dialysis schedule daily for further dosing.
--- NOTE | 2017-06-13 11:10 | NUR ---
Dr. Jasmine here to see pt. Full report given. New orders received. Addendum: 06/13/17 at 1249 by KWABENA LOPEZ RN stated that the pt was okay to have food.
[2017-06-13] MEDS ORDERED: IV NORMAL SALINE 500 ML IV ONE (11:15)
[2017-06-13] MEDS ORDERED: ONDANSETRON 4 MG/2 ML VIAL IV PRN (11:15)
[2017-06-13] MEDS ORDERED: LEVOFLOXACIN 250MG /D5W 250 MG in PREMIXED 1 EACH IV SCH (11:15)
[2017-06-13] MEDS ORDERED: LEVOFLOXACIN 500 MG/D5W 500 MG in PREMIXED 1 EACH IV ONE (12:00)
--- NOTE | 2017-06-13 16:16 | NUR ---
electric repair supervisor here to see pt for dialysis treatment at the bedside.
[2017-06-13] MEDS ORDERED: GENTAMICIN SULFATE INJ 100 MG in IV DEXTROSE 5% 100 ML IV ONE (17:00)
[2017-06-13] MEDS: ONDANSETRON 4 MG/2 ML VIAL IV PRN (17:09)
--- NOTE | 2017-06-13 18:11 | NUR ---
Dialysis completed. 1L of hemodialysis fluid removed. Pt stable and nad noted upon completion of dialysis treatment.
[2017-06-13] MEDS: NOREPINEPHRINE BITARTRATE 16 MG in IV DEXTROSE 5% 500 ML IV PRN (18:29)
--- NOTE | 2017-06-13 19:11 | NUR ---
End of shift: Pt resting in bed awake and alert with fall precautions and safety measures maintained. screw eye assembler and alarms working properly wnl. Pt on Portex #7 8L 40% FiO2 trach-mist. G-tube feeding kept off d/t pt's complaint of recent nausea. IV Levophed infusing as ordered. Suprapubic catheter kept c/d/i and draining properly. Ileostomy bag changed and kept c/d/i. DVT pumps on bilaterallly. Pt stable and nad noted.
--- NOTE | 2017-06-13 19:30 | NUR ---
Report received. Patient AAO, able to make needs known. Trache Portex size [address] and with aerosol mask 8L O2. Sat good. C/o nausea feelings. GT feedings off and was medicated by am RN with Claus. Mildly anxious. Reoriented and advised appropriately. Assessment completed. On continuous Levophed drip via dual lumen Midline SVETLANA for BP support. Addendum: 06/13/17 at 2102 by ROSARIO DURAN RN Amended: Links added.
--- NOTE | 2017-06-13 19:45 | NUR ---
Still anxious, and c/o abdominal discomfort. Asking repetitive questions. Medicated with Ativan IV. Addendum: 06/13/17 at 0 by ROSARIO DURAN RN Amended: Links added. Addendum: 06/13/17 at 2124 by ROSARIO DURAN RN Amended: Links added.
[2017-06-13] MEDS: LORAZEPAM 2 MG/1 ML VIAL IV PRN (19:49)
--- NOTE | 2017-06-13 20:20 | NUR ---
Asking for water to drink and wants to brush his teeth. PM care rendered. Able to brush his teeth with very minimal help. Medicated with Reglan via GT for continued abdominal discomfort and nausea. Addendum: 06/13/17 at 2124 by ROSARIO DURAN RN Amended: Links added.
--- NOTE | 2017-06-13 21:00 | NUR ---
Lopressor dose not given. Still on Levophed drip for BP support. Addendum: 06/13/17 at 2104 by ROSARIO DURAN RN Amended: Links added.
--- NOTE | 2017-06-13 22:00 | NUR ---
Remains awake, calling RN. Wants something for sleep. Still with nausea. Vomited about 100 ml of brown fluids. GT hooked up to suction; obtained about 100 ml of same secretions. Patient feels better afterwards. Bath given. Patient talkative. NAD noted. Medicated with Restoril via GT.
--- NOTE | 2017-06-13 23:30 | NUR ---
Still awake, c/o itchiness to R shoulder. Skin care provided. Turned to side. GT feedings restarted at 30 ml/H. HOB elevated above 30 degrees. Addendum: 06/14/17 at 0056 by ROSARIO DURAN RN Amended: Links added.
[2017-06-14] VITALS (93 sets, daily range): BP systolic 80–144; BP diastolic 41–99
--- NOTE | 2017-06-14 04:00 | NUR ---
Sleeping; NAD noted.
[2017-06-14 05:17] LABS: BASOPHILS # (AUTO) 0.2 K/uL (0.0-8.0); BASOPHILS % (AUTO) 0.9 % (0.0-2.0); EOSINOPHILS # (AUTO) 0.3 K/uL (0.0-0.7); EOSINOPHILS % (AUTO) 1.8 % (0.0-7.0); HEMATOCRIT 30.7 % (40-50); HEMOGLOBIN 9.8 G/DL (14.0-18.0); LYMPHOCYTES # (AUTO) 0.7 K/UL (0.8-4.8); LYMPHOCYTES % (AUTO) 4.1 % (20.5-51.5); MEAN CORPUSCULAR HGB CONC 32 g/dL (32.0-37.0); MEAN CORPUSCULAR VOLUME 100.2 FL (82.0-92.0); MONOCYTES % (AUTO) 17.8 % (0.0-11.0); NEUTROPHILS # (AUTO) 12.5 K/UL (1.8-8.9); NEUTROPHILS % (AUTO) 75.4 % (38.5-71.5); PLATELET COUNT (AUTO) 596 K/UL (150-450); RED BLOOD CELL COUNT(AUTO) 3.06 MIL/UL (4.7-6.1); WHITE BLOOD COUNT (AUTO) 16.7 K/UL (4.0-11.2)
[2017-06-14 05:19] LABS: BILIRUBIN,TOTAL 0.4 mg/dL (0.2-1.0); CREATININE 4.5 mg/dL (0.6-1.3); MAGNESIUM 2.1 mg/dL (1.8-2.4); PHOSPHOROUS 5.9 mg/dL (2.5-4.9); POTASSIUM 3.6 mmol/L (3.5-5.1); TOTAL PROTEIN, SERUM 8.7 g/dL (6.4-8.2)
[2017-06-14 05:26] LABS: BAND % (MANUAL) 6 % (0-10); EOSINOPHILS % (MANUAL) 2 % (0-8); LYMPHOCYTES % (MANUAL) 4 % (20-40); MONOCYTES % (MANUAL) 20 % (2-10); NEUTROPHILS % (MANUAL) 68 % (42-75)
--- NOTE | 2017-06-14 06:00 | NUR ---
Am care with wound treatment done. Now on Levophed drip at 9 mcg/min. Ileostomy bag changed. Stool for OB sent to lab.
[2017-06-14] MEDS: IV NORMAL SALINE 250 ML IV PRN ×2 (06:06→21:29)
[2017-06-14] MEDS: BLOOD SUGAR DIAGNOSTIC 1 EACH STRIP VI SCH ×3 (06:06→17:49)
--- NOTE | 2017-06-14 06:15 | NUR ---
Patient calling; nauseated. Vomited feeding like materials. GT feedings held. Zofran IV given. Bath rendered. HOB elevated above 30 degrees at all times.
[2017-06-14] MEDS: ONDANSETRON 4 MG/2 ML VIAL IV PRN ×3 (06:18→23:59)
[2017-06-14 06:56] LABS: *OCCULT BLOOD STOOL POSITIVE (NEGATIVE)
--- NOTE | 2017-06-14 07:00 | NUR ---
Zofran effective. Sleeping now. Remains on Levophed drip at 9 mcg/min.
--- NOTE | 2017-06-14 07:35 | NUR ---
report received from Travis. 57 yr old male patient transferred from [facility] to med surg but was transferred to the unit for levophed drip on 06/12/17. Patient is awake alert, labs and vital signs reviewed. Addendum: 06/14/17 at 0735 by ADOLPH JIMENES RN Amended: Links added.
[2017-06-14] MEDS: GABAPENTIN 300 MG CAPSULE GT SCH ×3 (08:37→17:33)
[2017-06-14] MEDS: PREGABALIN 25 MG CAPSULE GT SCH ×2 (08:37→17:33)
[2017-06-14] MEDS: ASCORBIC ACID 500 MG TABLET GT SCH ×2 (08:37→17:33)
[2017-06-14] MEDS: FOLIC ACID/VITAMIN B COMP W-C TABLET GT SCH (08:37)
[2017-06-14] MEDS: ZINC SULFATE 220 MG CAPSULE PEG SCH (08:37)
[2017-06-14] MEDS: METOPROLOL TARTRATE 25 MG TABLET GT SCH ×2 (08:38→21:00)
[2017-06-14] MEDS: Z GUARD REMEDY PASTE 57 GM TUBE TOP SCH ×2 (08:39→20:34)
[2017-06-14] MEDS: CALCIUM ACETATE 667 MG CAPSULE PO SCH ×3 (08:39→17:33)
[2017-06-14] MEDS: LORAZEPAM 2 MG/1 ML VIAL IV PRN ×2 (08:40→22:01)
--- NOTE | 2017-06-14 08:50 | NUR ---
remains nauseated, gastric residual 100ml. medicated with zofran.tube fdg remains off for now Addendum: 06/14/17 at 1028 by ADOLPH JIMENES RN Amended: Links added.
[2017-06-14] MEDS: ONDANSETRON HCL 4 MG TABLET GT PRN (08:57)
--- NOTE | 2017-06-14 10:23 | NUR ---
remains on levophed drip at 8mcg/min Addendum: 06/14/17 at 1024 by ADOLPH JIMENES RN Amended: Links added. Addendum: 06/14/17 at 1028 by ADOLPH JIMENES RN Amended: Links added.
--- NOTE | 2017-06-14 12:16 | NUR ---
accucheck 118, no insulin coverage
--- NOTE | 2017-06-14 12:19 | NUR ---
acclizett 118, no insulin coverage Addendum: 06/14/17 at 1219 by ADOLPH JIMENES RN Amended: Links added.
--- NOTE | 2017-06-14 13:00 | NUR ---
no nausea, no vomiting, tolerated pureed diet. tube fdg resumed post lunch. Addendum: 06/14/17 at 1449 by ADOLPH JIMENES RN Amended: Links added.
[2017-06-14] MEDS ORDERED: DOSING PER PHARMACY-AMIKACIN IV XX PRN (13:30)
--- NOTE | 2017-06-14 13:56 | NUR ---
CLINICAL PHARMACY NOTE:AMIKACIN DOSING Request for Amikacin dosing on 57 y/o male 5'5" 122 lbs for suspected infection. Temp 98.3 BUN 43 Scr 4.5 WBC 16.7 Band 6 Urine culture Pseudomonas A. sensitive to amikacin and Levaquin. Patient is on Levaquin. Patient is getting dialysis. Give one dose of amikacin today 7.5mg/op=[id number]. Will order random level at time of next dialysis. Will continue to monitor
[2017-06-14] MEDS ORDERED: IV NORMAL SALINE 500 ML IV ONE (15:00)
[2017-06-14] MEDS ORDERED: IV DEXTROSE 5% 500 ML IV PRN (15:00)
[2017-06-14] MEDS ORDERED: AMIKACIN IV ONE (15:00)
[2017-06-14] MEDS ORDERED: DEXTROSE 5% IV ONE (15:00)
--- NOTE | 2017-06-14 15:40 | NUR ---
IV fluid NS given IV bolus for persistent hypotension and need for levophed drip. Addendum: 06/14/17 at 1927 by ADOLPH JIMENES RN Amended: Links added. Addendum: 06/14/17 at 1930 by ADOLPH JIMENES RN Amended: Links added.
--- NOTE | 2017-06-14 17:15 | NUR ---
breathing treatment given by RT for difficulty coughing and chest tightness.. Addendum: 06/14/17 at 1924 by ADOLPH JIMENES RN Amended: Sascha added. Addendum: 06/14/17 at 1927 by ADOLPH JIMENES RN Amended: Links added. Addendum: 06/14/17 at 1930 by ADOLPH JIMENES RN Amended: Links added.
[2017-06-14] MEDS: ALBUTEROL SULFATE 2.5 MG/3 ML NEBU NEB PRN (17:16)
[2017-06-14] MEDS: INSULIN REGULAR, HUMAN 300 UNIT/3 ML VIAL SQ PRN (18:21)
[2017-06-14] MEDS: NOREPINEPHRINE BITARTRATE 16 MG in IV DEXTROSE 5% 500 ML IV PRN (18:28)
--- NOTE | 2017-06-14 18:30 | NUR ---
2 units given for accucheck 149. patient had excellent appetite both for lunch and dinner but messy. spills food all over the place. Addendum: 06/14/17 at 1930 by ADOLPH JIMENES RN Amended: Links added.
[2017-06-14] MEDS: TEMAZEPAM 15 MG CAPSULE PO PRN (21:28)
[2017-06-15] VITALS (96 sets, daily range): BP systolic 51–172; BP diastolic 26–94
--- NOTE | 2017-06-15 | NUR ---
Nausea & vomitting present. PRN medication given. 100mL residual noted from PEG. G-tube feeding turned off at this time.
--- NOTE | 2017-06-15 02:00 | NUR ---
2nd episode of vomitting. See I/O
[2017-06-15] MEDS: METOCLOPRAMIDE HCL 10 MG TABLET PEG PRN ×2 (02:04→19:40)
[2017-06-15] MEDS: LORAZEPAM 2 MG/1 ML VIAL IV PRN ×3 (04:32→22:59)
[2017-06-15] MEDS ORDERED: EPOETIN ALFA 10,000 UNITS/ML VIAL SQ ONE (05:30)
[2017-06-15] MEDS: BLOOD SUGAR DIAGNOSTIC 1 EACH STRIP VI SCH ×5 (06:11→20:43)
--- NOTE | 2017-06-15 06:30 | NUR ---
Procrit to be administered late. Pending AM labs
[2017-06-15] MEDS: ASCORBIC ACID 500 MG TABLET GT SCH ×2 (08:30→17:58)
[2017-06-15] MEDS: ZINC SULFATE 220 MG CAPSULE PEG SCH (08:30)
[2017-06-15] MEDS: METOPROLOL TARTRATE 25 MG TABLET GT SCH ×3 (08:30→20:35)
[2017-06-15] MEDS: FOLIC ACID/VITAMIN B COMP W-C TABLET GT SCH (08:30)
--- NOTE | 2017-06-15 09:05 | NUR ---
Patient started dialysis.
[2017-06-15] MEDS: PREGABALIN 25 MG CAPSULE GT SCH ×2 (09:13→17:58)
[2017-06-15] MEDS: GABAPENTIN 300 MG CAPSULE GT SCH ×3 (09:13→17:58)
[2017-06-15] MEDS: CALCIUM ACETATE 667 MG CAPSULE PO SCH ×3 (09:13→17:58)
[2017-06-15] MEDS: ONDANSETRON 4 MG/2 ML VIAL IV PRN ×2 (09:15→22:59)
[2017-06-15] MEDS: Z GUARD REMEDY PASTE 57 GM TUBE TOP SCH ×2 (09:19→20:35)
[2017-06-15 09:57] LABS: CREATININE 5.4 mg/dL (0.6-1.3); MAGNESIUM 1.9 mg/dL (1.8-2.4); PHOSPHOROUS 6.2 mg/dL (2.5-4.9); POTASSIUM 3.5 mmol/L (3.5-5.1)
[2017-06-15 09:58] LABS: BASOPHILS # (AUTO) 0.1 K/uL (0.0-8.0); BASOPHILS % (AUTO) 0.4 % (0.0-2.0); EOSINOPHILS # (AUTO) 0.5 K/uL (0.0-0.7); EOSINOPHILS % (AUTO) 3.3 % (0.0-7.0); HEMATOCRIT 26.9 % (40-50); HEMOGLOBIN 8.5 G/DL (14.0-18.0); LYMPHOCYTES # (AUTO) 0.7 K/UL (0.8-4.8); LYMPHOCYTES % (AUTO) 4.6 % (20.5-51.5); MEAN CORPUSCULAR HEMOGLOBIN 31.5 UUG (27.0-31.0); MEAN CORPUSCULAR HGB CONC 32 g/dL (32.0-37.0); MEAN CORPUSCULAR VOLUME 99.7 FL (82.0-92.0); MONOCYTES # (AUTO) 2.4 K/UL (0.1-1.30); MONOCYTES % (AUTO) 15.9 % (0.0-11.0); NEUTROPHILS # (AUTO) 11.5 K/UL (1.8-8.9); NEUTROPHILS % (AUTO) 75.8 % (38.5-71.5); PLATELET COUNT (AUTO) 486 K/UL (150-450); WHITE BLOOD COUNT (AUTO) 15.2 K/UL (4.0-11.2)
--- NOTE | 2017-06-15 10:04 | NUR ---
PT'S BP DECREASED 51/26, PATIENT C/O "BEING COLD." LEVOPHED INCREASED TO 17 MCG/MIN. BP UP TO 101/69. Addendum: 06/15/17 at 1010 by KELSEY WALLIS RN HD IN PROGRESS.
[2017-06-15] MEDS ORDERED: IV NS 1000 ML 1,000 ML IV ONE (10:35)
[2017-06-15] MEDS: INSULIN REGULAR, HUMAN 300 UNIT/3 ML VIAL SQ PRN (11:53)
[2017-06-15] MEDS: LEVOFLOXACIN 250MG /D5W 250 MG in PREMIXED 1 EACH IV SCH (11:55)
[2017-06-15 12:01] LABS: BAND % (MANUAL) 4 % (0-10); EOSINOPHILS % (MANUAL) 2 % (0-8); LYMPHOCYTES % (MANUAL) 9 % (20-40); METAMYELOCYTES % 1 % (0-1); MONOCYTES % (MANUAL) 9 % (2-10); NEUTROPHILS % (MANUAL) 75 % (42-75)
--- NOTE | 2017-06-15 12:26 | NUR ---
PATIENT SEEN BY DR. GLOVER, FULL REPORT GIVEN. NEW ORDERS RECEIVED.
--- NOTE | 2017-06-15 17:07 | NUR ---
CLINICAL PHARMACY NOTE:AMIKACIN DOSING Request for Amikacin dosing on 57 y/o male 5'5" 122 lbs for suspected infection. Temp 98.4 BUN 65 Scr 5.4 WBC 15.2 Urine culture Pseudomonas A. sensitive to amikacin and Levaquin. Patient is getting dialysis. pre-HD level today: 22.5 Assessment/Plan HD given today, as pre-HD level high, no dose will be given today. Last dose of 415mg was given yesterday evening. Will order random level at time of next dialysis. Will continue to monitor
[2017-06-15] MEDS: NOREPINEPHRINE BITARTRATE 16 MG in IV DEXTROSE 5% 500 ML IV PRN (17:13)
--- NOTE | 2017-06-15 17:42 | NUR ---
PATIENT SEEN BY DR. PATEL, DETAILED REPORT GIVEN.
[2017-06-15] MEDS: ACETAMINOPHEN 650 MG/20.3 ML LIQUID UDC GT PRN (19:40)
[2017-06-15] MEDS: LACTOBACILLUS RHAMNOSUS GG 1 EACH CAPSULE PO SCH (20:35)
[2017-06-15] MEDS: TEMAZEPAM 15 MG CAPSULE PO PRN (20:36)
[2017-06-15] MEDS ORDERED: DEXTROSE 50% 50 ML DISP.SYRIN IV PRN (20:45)
[2017-06-15] MEDS ORDERED: INSULIN REGULAR, HUMAN 300 UNIT/3 ML VIAL SQ PRN (20:45)
--- NOTE | 2017-06-15 21:40 | NUR ---
PRN sleep medication given per patient request. Corrected insomnia. Will continue to monitor.
--- NOTE | 2017-06-15 23:00 | NUR ---
One episode of non-bloody emesis, approximately 150 mL out. PRN medication given as ordered. Continue to monitor.
[2017-06-16] VITALS (95 sets, daily range): BP systolic 76–138; BP diastolic 33–91
[2017-06-16 05:19] LABS: BASOPHILS # (AUTO) 0.2 K/uL (0.0-8.0); BASOPHILS % (AUTO) 1.8 % (0.0-2.0); EOSINOPHILS # (AUTO) 0.5 K/uL (0.0-0.7); EOSINOPHILS % (AUTO) 3.7 % (0.0-7.0); HEMOGLOBIN 9.2 G/DL (14.0-18.0); LYMPHOCYTES # (AUTO) 0.9 K/UL (0.8-4.8); LYMPHOCYTES % (AUTO) 6.6 % (20.5-51.5); MEAN CORPUSCULAR HEMOGLOBIN 30.6 UUG (27.0-31.0); MEAN CORPUSCULAR HGB CONC 31 g/dL (32.0-37.0); MEAN CORPUSCULAR VOLUME 99.4 FL (82.0-92.0); MONOCYTES # (AUTO) 2.3 K/UL (0.1-1.30); MONOCYTES % (AUTO) 16.4 % (0.0-11.0); NEUTROPHILS # (AUTO) 9.8 K/UL (1.8-8.9); NEUTROPHILS % (AUTO) 71.5 % (38.5-71.5); PLATELET COUNT (AUTO) 512 K/UL (150-450); RED BLOOD CELL COUNT(AUTO) 3.02 MIL/UL (4.7-6.1); WHITE BLOOD COUNT (AUTO) 13.7 K/UL (4.0-11.2)
[2017-06-16 05:25] LABS: BAND % (MANUAL) 2 % (0-10); EOSINOPHILS % (MANUAL) 2 % (0-8); LYMPHOCYTES % (MANUAL) 11 % (20-40); MONOCYTES % (MANUAL) 18 % (2-10); NEUTROPHILS % (MANUAL) 67 % (42-75)
[2017-06-16 05:29] LABS: BILIRUBIN,TOTAL 0.3 mg/dL (0.2-1.0); CREATININE 4.6 mg/dL (0.6-1.3); MAGNESIUM 1.9 mg/dL (1.8-2.4); PHOSPHOROUS 4.7 mg/dL (2.5-4.9); POTASSIUM 4.7 mmol/L (3.5-5.1)
[2017-06-16 05:47] LABS: *BILIRUBIN,URIN NEGATIVE (NEGATIVE); *BLOOD, URINE 3+ (NEGATIVE); *CLARITY,URINE TURBID (CLEAR); *COLOR,URINE YELLOW (YELLOW); *KETONES,URINE NEGATIVE (NEGATIVE); *PROTEIN,URINE 3+ (NEGATIVE); *UROBILINOGEN,URINE 0.2 E.U./dl (NORMAL); LEUKOCYTE ESTERASE ,URINE 3+ (NEGATIVE); NITRITE, URINE POSITIVE (NEGATIVE); UGLUCOSE NEGATIVE (NEGATIVE)
[2017-06-16 05:48] LABS: PH,URINE >9.0 (5.0-8.0)
[2017-06-16 05:50] LABS: BACTERIA,URINE MANY /HPF (NONE SEEN); SQUAMOUS EPITHELIAL CELL,UR FEW /HPF (NONE SEEN); WBC,URINE TNTC /HPF (0-3)
[2017-06-16] MEDS: BLOOD SUGAR DIAGNOSTIC 1 EACH STRIP VI SCH ×4 (07:05→20:36)
--- NOTE | 2017-06-16 07:30 | NUR ---
Pt.A/A/OX3 agitation noted,no s/s of acute distress,denies pain @ time.
[2017-06-16] MEDS: CALCIUM ACETATE 667 MG CAPSULE PO SCH ×3 (07:36→16:40)
[2017-06-16] MEDS: LORAZEPAM 2 MG/1 ML VIAL IV PRN ×3 (07:36→23:02)
[2017-06-16] MEDS: ASCORBIC ACID 500 MG TABLET GT SCH ×2 (08:00→16:40)
[2017-06-16] MEDS: LACTOBACILLUS RHAMNOSUS GG 1 EACH CAPSULE PO SCH ×2 (08:00→20:34)
[2017-06-16] MEDS: FOLIC ACID/VITAMIN B COMP W-C TABLET GT SCH (08:00)
[2017-06-16] MEDS: PREGABALIN 25 MG CAPSULE GT SCH ×2 (08:00→16:43)
[2017-06-16] MEDS: GABAPENTIN 300 MG CAPSULE GT SCH ×3 (08:00→16:40)
[2017-06-16] MEDS: ZINC SULFATE 220 MG CAPSULE PEG SCH (08:00)
[2017-06-16] MEDS: Z GUARD REMEDY PASTE 57 GM TUBE TOP SCH ×2 (08:01→20:34)
[2017-06-16] MEDS: METOPROLOL TARTRATE 25 MG TABLET GT SCH (08:01)
--- NOTE | 2017-06-16 12:56 | NUR ---
Pt.eating lunch, watching TV,cont on Levophed Gtt.
--- NOTE | 2017-06-16 13:44 | NUR ---
CLINICAL PHARMACY NOTE:AMIKACIN DOSING Request for Amikacin dosing on 57 y/o male 5'5" 122 lbs for suspected infection. Temp 98.6 BUN 52 Scr 4.6 WBC 13.7 Urine culture Pseudomonas A. sensitive to amikacin and Levaquin. Patient is getting dialysis. Assessment/Plan No HD scheduled for today, thereforee no dose will be given today. Will order random level at time of next dialysis. Will continue to monitor
--- NOTE | 2017-06-16 14:22 | NUR ---
Pt.was seen by with new oders.
[2017-06-16] MEDS ORDERED: METOPROLOL TARTRATE 25 MG TABLET PO SCH (17:00)
--- NOTE | 2017-06-16 18:30 | NUR ---
PT.WAS ASSISTED WITH DINNER,GOOD APPETITE,NO S/S OF DISTRESS ,DENIES PAIN @ TIME.
--- NOTE | 2017-06-16 19:30 | NUR ---
Report received. Patient AAO, with trache with 10 L aerosol mask. Passy stefano valve in place. Patient able to make need known. On continuous Levophed drip for BP support. Addendum: 06/16/17 at 2238 by ROSARIO DURAN RN Amended: Links added. Addendum: 06/16/17 at 2250 by ROSARIO DURAN RN Amended: Links added. Addendum: 06/16/17 at 2324 by ROSARIO DURAN RN Amended: Links added.
--- NOTE | 2017-06-16 20:00 | NUR ---
Patient wants to brush teeth; asking repetitive questions. Forgetful. Levophed drip titrated up. Brushed teeth. PM care rendered. Turned and repositioned. Tachycardic. Afebrile. Addendum: 06/16/17 at 2250 by ROSARIO DURAN RN Amended: Links added. Addendum: 06/16/17 at 6522 by ROSARIO DURAN RN Amended: Links added.
[2017-06-16] MEDS: IV NORMAL SALINE 250 ML IV PRN (20:18)
--- NOTE | 2017-06-16 20:25 | NUR ---
Patient nauseated; vomited partially digested food. Medicated with Zofran IV. Addendum: 06/16/17 at 2236 by ROSARIO DURAN RN Amended: Links added.
[2017-06-16] MEDS: ONDANSETRON 4 MG/2 ML VIAL IV PRN (20:26)
[2017-06-16] MEDS: METOPROLOL TARTRATE 25 MG TABLET PO SCH (20:34)
--- NOTE | 2017-06-16 20:34 | NUR ---
Remains tachycardic.; Lopressor dose given via GT. RW=684, AK=937/88. Asking for his sleeping pill. Restoril given.
[2017-06-16] MEDS: TEMAZEPAM 15 MG CAPSULE PO PRN (20:37)
[2017-06-16] MEDS: NOREPINEPHRINE BITARTRATE 16 MG in IV DEXTROSE 5% 500 ML IV PRN (20:49)
[2017-06-16] MEDS ORDERED: METOCLOPRAMIDE HCL 10 MG TABLET PEG PRN (22:00)
[2017-06-16] MEDS: METOCLOPRAMIDE HCL 10 MG TABLET PEG SCH (22:14)
[2017-06-17] VITALS (31 sets, daily range): BP systolic 80–151; BP diastolic 40–94
[2017-06-17 05:07] LABS: BASOPHILS # (AUTO) 0.1 K/uL (0.0-8.0); BASOPHILS % (AUTO) 0.8 % (0.0-2.0); EOSINOPHILS # (AUTO) 0.7 K/uL (0.0-0.7); EOSINOPHILS % (AUTO) 7.4 % (0.0-7.0); HEMATOCRIT 25.3 % (40-50); HEMOGLOBIN 8.1 G/DL (14.0-18.0); LYMPHOCYTES # (AUTO) 0.7 K/UL (0.8-4.8); LYMPHOCYTES % (AUTO) 7.2 % (20.5-51.5); MEAN CORPUSCULAR HEMOGLOBIN 31.5 UUG (27.0-31.0); MEAN CORPUSCULAR HGB CONC 32 g/dL (32.0-37.0); MEAN CORPUSCULAR VOLUME 98.3 FL (82.0-92.0); MONOCYTES # (AUTO) 1.5 K/UL (0.1-1.30); MONOCYTES % (AUTO) 15.3 % (0.0-11.0); NEUTROPHILS # (AUTO) 7.1 K/UL (1.8-8.9); NEUTROPHILS % (AUTO) 69.3 % (38.5-71.5); PLATELET COUNT (AUTO) 443 K/UL (150-450); RED BLOOD CELL COUNT(AUTO) 2.58 MIL/UL (4.7-6.1); WHITE BLOOD COUNT (AUTO) 10.1 K/UL (4.0-11.2)
[2017-06-17 05:10] LABS: BILIRUBIN,TOTAL 0.2 mg/dL (0.2-1.0); CREATININE 5.8 mg/dL (0.6-1.3); MAGNESIUM 1.8 mg/dL (1.8-2.4); PHOSPHOROUS 5.7 mg/dL (2.5-4.9); POTASSIUM 5.3 mmol/L (3.5-5.1); TOTAL PROTEIN, SERUM 6.8 g/dL (6.4-8.2)
[2017-06-17 05:12] LABS: BAND % (MANUAL) 1 % (0-10); EOSINOPHILS % (MANUAL) 3 % (0-8); LYMPHOCYTES % (MANUAL) 9 % (20-40); MONOCYTES % (MANUAL) 14 % (2-10); NEUTROPHILS % (MANUAL) 73 % (42-75)
[2017-06-17] MEDS: METOCLOPRAMIDE HCL 10 MG TABLET PEG SCH ×3 (05:59→21:41)
--- NOTE | 2017-06-17 06:44 | NUR ---
BP stable; off Levophed drip since 144. Remains on 10 L trache mask. Sat above 96%. No further vomiting. Slept fairly well during the night. Addendum: 06/17/17 at 0653 by ROSARIO DURAN RN Amended: Links added.
[2017-06-17] MEDS: BLOOD SUGAR DIAGNOSTIC 1 EACH STRIP VI SCH ×4 (07:47→20:22)
[2017-06-17] MEDS: CALCIUM ACETATE 667 MG CAPSULE PO SCH ×3 (08:00→17:06)
[2017-06-17] MEDS: ASCORBIC ACID 500 MG TABLET GT SCH ×2 (08:00→17:07)
[2017-06-17] MEDS: GABAPENTIN 300 MG CAPSULE GT SCH ×3 (08:00→17:07)
[2017-06-17] MEDS: PREGABALIN 25 MG CAPSULE GT SCH ×2 (08:00→17:07)
--- NOTE | 2017-06-17 08:00 | NUR ---
Pt received resting and dozing off bed. Fall precautions and safety measures maintained. Pt with Portex #7 10L trach to mist. care giver and alarms working properly wnl. G-tube kept c/d/i. Suprapubic c/d/i and draining properly. Ileostomy c/d/i. DVT pumps on bilaterally. Pt hemodynamically stable and nad noted.
[2017-06-17] MEDS: FOLIC ACID/VITAMIN B COMP W-C TABLET GT SCH (08:01)
[2017-06-17] MEDS: LACTOBACILLUS RHAMNOSUS GG 1 EACH CAPSULE PO SCH ×2 (08:01→20:24)
[2017-06-17] MEDS: METOPROLOL TARTRATE 25 MG TABLET PO SCH ×2 (08:01→20:24)
[2017-06-17] MEDS: ZINC SULFATE 220 MG CAPSULE PEG SCH (08:01)
[2017-06-17] MEDS: Z GUARD REMEDY PASTE 57 GM TUBE TOP SCH ×2 (08:02→20:23)
--- NOTE | 2017-06-17 08:32 | NUR ---
glass forming engineer here to see pt for dialysis treatment.
[2017-06-17] MEDS ORDERED: ALBUMIN HUMAN 25% 100 ML IV ONE (09:15)
[2017-06-17] MEDS: ALBUMIN HUMAN 25% 100 ML IV PRN ×2 (09:54→11:13)
[2017-06-17] MEDS: LEVOFLOXACIN 250MG /D5W 250 MG in PREMIXED 1 EACH IV SCH (11:09)
--- NOTE | 2017-06-17 11:16 | NUR ---
Hemodialysis complete. 1.6L of hemodialysis fluid removed. Pt stable and nad noted upon completion of dialysis treatment.
--- NOTE | 2017-06-17 12:20 | NUR ---
Spoke with Dr. Winston on the telephone regarding pt's low H/H and made aware of pt's positive stool OB. New orders received and carried out.
[2017-06-17] MEDS ORDERED: EPOETIN ALFA 10,000 UNITS/ML VIAL SQ ONE (12:30)
[2017-06-17] MEDS: PANTOPRAZOLE ORAL SUSPENSION 40 MG SUSPDR.PKT GT SCH (13:03)
[2017-06-17] MEDS ORDERED: AMIKACIN IV ONE (14:00)
[2017-06-17] MEDS ORDERED: DEXTROSE 5% IV ONE (14:00)
--- NOTE | 2017-06-17 15:26 | NUR ---
CLINICAL PHARMACY NOTE:AMIKACIN DOSING Request for Amikacin dosing on 57 y/o male 5'5" 122 lbs for suspected infection. Temp 98 BUN 56 Scr 5.8 WBC 10.1 Urine culture Pseudomonas A. sensitive to amikacin and Levaquin. Patient is getting dialysis. Pre-HD level: 8.9 Assessment/Plan Pt received HD today, as pre-HD level <10, wiill dose another 415mg x 1 amikacin today per protocol. Dose due at 1400. Will order random level at time of next dialysis. Will continue to monitor
[2017-06-17] MEDS: ONDANSETRON 4 MG/2 ML VIAL IV PRN ×2 (17:31→23:25)
[2017-06-17] MEDS: IV NORMAL SALINE 250 ML IV PRN (17:52)
--- NOTE | 2017-06-17 18:34 | NUR ---
End of shift: Pt resting in bed awake and alert with fall precautions and safety measures maintained. Pt with Portex #7 10L trach to mist. sleeve setter safety stitch and alarms working properly wnl. G-tube kept c/d/i. Suprapubic c/d/i and draining properly. Ileostomy c/d/i. DVT pumps on bilaterally. Pt hemodynamically stable and nad noted.
--- NOTE | 2017-06-17 20:00 | NUR ---
RECEIVED PT. AAOX3. ON O2 @ 10L P MIST VIA TRACH, PASSY GRACE IN PLACE. MIDLINE ON SVETLANA INTACT & PATENT. DENIES PAIN. PT IS AGITATED. V/S STABLE. REPOSITIONED W/ HOB ELEVATED.
[2017-06-17] MEDS: LORAZEPAM 2 MG/1 ML VIAL IV PRN (20:08)
[2017-06-17] MEDS: TEMAZEPAM 15 MG CAPSULE PO PRN (21:40)
--- NOTE | 2017-06-17 22:00 | NUR ---
HS CARE DONE. TRACH CARE DONE. REPOSITIONED.
[2017-06-18] VITALS (13 sets, daily range): BP systolic 88–128; BP diastolic 38–78
--- NOTE | 2017-06-18 | NUR ---
V/S STABLE.NOT IN ANY DISTRESS.
[2017-06-18] MEDS: LORAZEPAM 2 MG/1 ML VIAL IV PRN ×3 (00:51→22:17)
[2017-06-18] MEDS: ACETAMINOPHEN 650 MG/20.3 ML LIQUID UDC GT PRN (02:45)
--- NOTE | 2017-06-18 04:00 | NUR ---
AM CARE DONE. TRACH CARE DONE. ILEOSTOMY CARE DONE. SUPRAPUBIC SITE & G-TUBE SITE CLEANED , DRSG. APPLIED. REPOSITIONED W/ HOB ELEVATED. V/S STABLE.
[2017-06-18] MEDS: IV NORMAL SALINE 250 ML IV PRN (05:49)
[2017-06-18] MEDS: METOCLOPRAMIDE HCL 10 MG TABLET PEG SCH ×3 (05:52→22:17)
--- NOTE | 2017-06-18 06:13 | NUR ---
RESTING QUITELY THIS TIME. BP STABLE.
[2017-06-18] MEDS: BLOOD SUGAR DIAGNOSTIC 1 EACH STRIP VI SCH ×4 (08:05→20:46)
[2017-06-18] MEDS: METOPROLOL TARTRATE 25 MG TABLET PO SCH ×3 (08:07→20:46)
[2017-06-18] MEDS: ASCORBIC ACID 500 MG TABLET GT SCH ×2 (08:12→17:16)
[2017-06-18] MEDS: LACTOBACILLUS RHAMNOSUS GG 1 EACH CAPSULE PO SCH ×2 (08:12→20:46)
[2017-06-18] MEDS: ZINC SULFATE 220 MG CAPSULE PEG SCH (08:12)
[2017-06-18] MEDS: PANTOPRAZOLE ORAL SUSPENSION 40 MG SUSPDR.PKT GT SCH (08:12)
[2017-06-18] MEDS: PREGABALIN 25 MG CAPSULE GT SCH ×2 (08:12→17:16)
[2017-06-18] MEDS: FOLIC ACID/VITAMIN B COMP W-C TABLET GT SCH (08:12)
[2017-06-18] MEDS: CALCIUM ACETATE 667 MG CAPSULE PO SCH ×3 (08:12→18:23)
[2017-06-18] MEDS: GABAPENTIN 300 MG CAPSULE GT SCH ×3 (08:12→17:16)
[2017-06-18] MEDS: Z GUARD REMEDY PASTE 57 GM TUBE TOP SCH ×2 (08:17→20:46)
--- NOTE | 2017-06-18 08:38 | NUR ---
BS 66. PATIENT ASYMPTOMATIC AND ATE 100% OF BREAKFAST.
--- NOTE | 2017-06-18 10:50 | NUR ---
PATIENT SEEN BY DR. GLOVER. DETAILED REPORT GIVEN. SEE NEW ORDERS.
[2017-06-18] MEDS: ONDANSETRON 4 MG/2 ML VIAL IV PRN (12:10)
--- NOTE | 2017-06-18 13:45 | NUR ---
Dr. Jasmine notified of pt's persistent vomiting and nausea despite been medicated. Orders to continue monitor. and as stated by Dr. Jasmine He'll call GI consult.
--- NOTE | 2017-06-18 14:40 | NUR ---
CLINICAL PHARMACY NOTE:AMIKACIN DOSING TO continue Amikacin dosing on 57 y/o male 5'5" 122 lbs for suspected infection(UTI). Temp 98 BUN 56 Scr 5.8 WBC 10.1 Urine culture Pseudomonas A. sensitive to amikacin and Levaquin. Patient is getting dialysis. Assessment/Plan Will continue Amikacin dosing per pre HD random level. Amikacin 415mg x1 was given yesterday at 1400. Since there will be no HD , no dose will be given today. Will order random level at time of next dialysis. Will continue to monitor
--- NOTE | 2017-06-18 18:09 | NUR ---
Patient tolerated meal. No n/v at this time.
--- NOTE | 2017-06-18 20:00 | NUR ---
RECEIVED PT. AWAKE , FOLLOWS TO COMMAND. ON O2 @ 40% P-MIST VIA TRACH W/ O2 SAT OF 100%. MIDLINE INTACT ON SVETLANA DOUBLE PORTS , & ARE PATENT.NS @ 10CC/HR FOR IVPB. ILEOSTOMY BAG INTACT W/ BROWNISH SOFT STOOL. SUPRAPUBIC CATH. INTACT DRAINING TO CLOUDY LANDON URINE.G-TUBE INTACT CLAMPED & PATENT. REPOSITIONED W/ HOB ELEVATED. NOT IN ANY DISTRESS.
[2017-06-18] MEDS: TEMAZEPAM 15 MG CAPSULE PO PRN (20:54)
--- NOTE | 2017-06-18 22:00 | NUR ---
HS CARE DONE & REPOSITIONED W/ HOB ELEVATED.
[2017-06-19] VITALS: BP 114/67
--- NOTE | 2017-06-19 | NUR ---
V/S STABLE. NOT IN ANY DISTRESS.
[2017-06-19] MEDS ORDERED: LORAZEPAM 2 MG/1 ML VIAL ONE (01:11)
[2017-06-19] MEDS: ACETAMINOPHEN 650 MG/20.3 ML LIQUID UDC GT PRN ×2 (02:33→21:56)
[2017-06-19 04:00] VITALS: BP 112/49
--- NOTE | 2017-06-19 04:00 | NUR ---
AM CARE DONE. TRACH CARE DONE. ILEOSTOMY CARE DONE. CLEANED G-TUBE & SUPRAPUBIC SITE & COVERED W/ DRSG.REPOSITIONED W/ HOB ELEVATED.
[2017-06-19] MEDS: METOCLOPRAMIDE HCL 10 MG TABLET PEG SCH ×3 (06:16→21:53)
[2017-06-19] MEDS: IV NORMAL SALINE 250 ML IV PRN (06:17)
[2017-06-19] MEDS: LACTOBACILLUS RHAMNOSUS GG 1 EACH CAPSULE PO SCH ×2 (07:59→21:49)
[2017-06-19] MEDS: CALCIUM ACETATE 667 MG CAPSULE PO SCH ×3 (07:59→17:00)
[2017-06-19] MEDS: BLOOD SUGAR DIAGNOSTIC 1 EACH STRIP VI SCH ×4 (07:59→21:00)
[2017-06-19 08:00] VITALS: BP 102/58
[2017-06-19] MEDS: FOLIC ACID/VITAMIN B COMP W-C TABLET GT SCH (08:00)
[2017-06-19] MEDS: PREGABALIN 25 MG CAPSULE GT SCH ×2 (08:00→16:31)
[2017-06-19] MEDS: ZINC SULFATE 220 MG CAPSULE PEG SCH (08:00)
[2017-06-19] MEDS: PANTOPRAZOLE ORAL SUSPENSION 40 MG SUSPDR.PKT GT SCH (08:00)
[2017-06-19] MEDS: ASCORBIC ACID 500 MG TABLET GT SCH ×2 (08:00→16:30)
[2017-06-19] MEDS: GABAPENTIN 300 MG CAPSULE GT SCH ×3 (08:00→16:30)
[2017-06-19] MEDS: METOPROLOL TARTRATE 25 MG TABLET PO SCH ×2 (08:03→21:53)
[2017-06-19] MEDS: Z GUARD REMEDY PASTE 57 GM TUBE TOP SCH ×2 (08:03→21:00)
[2017-06-19 08:19] LABS: BASOPHILS # (AUTO) 0.2 K/uL (0.0-8.0); BASOPHILS % (AUTO) 2.5 % (0.0-2.0); EOSINOPHILS # (AUTO) 0.8 K/uL (0.0-0.7); EOSINOPHILS % (AUTO) 8.7 % (0.0-7.0); HEMOGLOBIN 9.1 G/DL (14.0-18.0); LYMPHOCYTES # (AUTO) 0.8 K/UL (0.8-4.8); LYMPHOCYTES % (AUTO) 8.6 % (20.5-51.5); MEAN CORPUSCULAR HEMOGLOBIN 31.2 UUG (27.0-31.0); MEAN CORPUSCULAR HGB CONC 32 g/dL (32.0-37.0); MEAN CORPUSCULAR VOLUME 98.3 FL (82.0-92.0); MONOCYTES # (AUTO) 1.1 K/UL (0.1-1.30); MONOCYTES % (AUTO) 12.4 % (0.0-11.0); NEUTROPHILS % (AUTO) 67.8 % (38.5-71.5); PLATELET COUNT (AUTO) 518 K/UL (150-450); WHITE BLOOD COUNT (AUTO) 8.9 K/UL (4.0-11.2)
--- NOTE | 2017-06-19 08:20 | NUR ---
stat labs obtained for dialysis to be started. metroprolol held for dialysis.
[2017-06-19 08:24] LABS: HEMATOCRIT 28.6 % (40-50); RED BLOOD CELL COUNT(AUTO) 2.91 MIL/UL (4.7-6.1)
[2017-06-19 08:38] LABS: BILIRUBIN,TOTAL 0.3 mg/dL (0.2-1.0); CREATININE 4.2 mg/dL (0.6-1.3); POTASSIUM 4.1 mmol/L (3.5-5.1); TOTAL PROTEIN, SERUM 8.1 g/dL (6.4-8.2)
[2017-06-19] MEDS ORDERED: ALBUMIN HUMAN 25% 100 ML IV PRN (08:45)
--- NOTE | 2017-06-19 11:45 | NUR ---
dr. allen in the unit rounding on the patient. informed dialysis was done today and no fluid was pulled out just cleaning. no more vomiting. patient needs to be feed slowly and small meals.
[2017-06-19 12:00] VITALS: BP 132/80
[2017-06-19] MEDS: LEVOFLOXACIN 250MG /D5W 250 MG in PREMIXED 1 EACH IV SCH (12:00)
[2017-06-19] MEDS: LORAZEPAM 2 MG/1 ML VIAL IV PRN (13:52)
[2017-06-19 16:00] VITALS: BP 141/81
--- NOTE | 2017-06-19 16:00 | NUR ---
doctor phani in unit to see patient. new order for lotrimin cream to his feet.
--- NOTE | 2017-06-19 16:17 | NUR ---
CLINICAL PHARMACY NOTE:AMIKACIN DOSING Subjective Amikacin dosing continue for this 57 y/o male 5'5" 122 lbs for suspected infection. Objective Temp 97.5 BUN 32 Scr 4.2 WBC 8.9 Urine culture Pseudomonas A. sensitive to amikacin and Levaquin. Patient is getting dialysis. Pre-HD level: 16.6 (with am labs) Assessment/Plan Pt received HD today. Since pre-HD level >10 mcg/ml, no dose shall be given today. Will continue to dose as per pre-HD level.Will order random level at time of next dialysis (level not yet ordered). Will continue to monitor
[2017-06-19] MEDS: CLOTRIMAZOLE 1% CREAM 30 GM TUBE TOP SCH (17:00)
--- NOTE | 2017-06-19 18:45 | NUR ---
patient transferred to the floor at this time. report to be given at change of shift to tank bottom assembler nurse.
[2017-06-19 20:11] VITALS: BP 112/81
[2017-06-19] MEDS: TEMAZEPAM 15 MG CAPSULE PO PRN (21:50)
--- NOTE | 2017-06-20 00:01 | NUR ---
Sleeping quietly. VSS. SR telemetry.
[2017-06-20 00:02] VITALS: BP 94/62
[2017-06-20 04:58] VITALS: BP 103/70
[2017-06-20] MEDS: METOCLOPRAMIDE HCL 10 MG TABLET PEG SCH ×2 (06:00→14:08)
[2017-06-20] MEDS: BLOOD SUGAR DIAGNOSTIC 1 EACH STRIP VI SCH ×3 (06:52→16:18)
[2017-06-20] MEDS ORDERED: AMIK250V7 IM/IV (07:37)
[2017-06-20] MEDS ORDERED: CLOT30CR24 TOP (07:37)
[2017-06-20] MEDS ORDERED: LEVO250T2 PO (07:37)
[2017-06-20] MEDS ORDERED: ALBU2.5V7 NEB (07:37)
[2017-06-20] MEDS ORDERED: Calcium Acetate PO (07:37)
[2017-06-20] MEDS ORDERED: RXAMI XX (07:37)
[2017-06-20] MEDS ORDERED: FOLI0.8T2 GT (07:37)
[2017-06-20] MEDS ORDERED: LACT1CAP57 PO (07:37)
--- NOTE | 2017-06-20 08:00 | NUR ---
awake alert and oriented, very needy, on Pmist 40% via tracheostomy, passy stefano valve on, tele SR 70's, right upper chest Permcath noted for dialysis, dsg dry, right upper midline patent , colostomy bag filled with stool and fas- replaced with new bag, G tube clamped at this time-dsg dry and intact, suprapubic cath with scant amount of thick yellowish drainage noted in tubing and bag, paraplegic, on first step mattress, needs attended, call light within reach
[2017-06-20] MEDS: CALCIUM ACETATE 667 MG CAPSULE PO SCH ×3 (09:10→17:11)
[2017-06-20] MEDS: PREGABALIN 25 MG CAPSULE GT SCH ×2 (09:11→16:18)
[2017-06-20] MEDS: LACTOBACILLUS RHAMNOSUS GG 1 EACH CAPSULE PO SCH (09:11)
[2017-06-20] MEDS: PANTOPRAZOLE ORAL SUSPENSION 40 MG SUSPDR.PKT GT SCH (09:11)
[2017-06-20] MEDS: ZINC SULFATE 220 MG CAPSULE PEG SCH (09:11)
[2017-06-20] MEDS: GABAPENTIN 300 MG CAPSULE GT SCH ×3 (09:11→16:18)
[2017-06-20] MEDS: FOLIC ACID/VITAMIN B COMP W-C TABLET GT SCH (09:11)
[2017-06-20] MEDS: ASCORBIC ACID 500 MG TABLET GT SCH ×2 (09:11→16:18)
[2017-06-20] MEDS: Z GUARD REMEDY PASTE 57 GM TUBE TOP SCH (09:12)
[2017-06-20] MEDS: CLOTRIMAZOLE 1% CREAM 30 GM TUBE TOP SCH ×2 (09:12→16:22)
[2017-06-20] MEDS: METOPROLOL TARTRATE 25 MG TABLET PO SCH (09:27)
--- NOTE | 2017-06-20 12:00 | NUR ---
repositioned q 2h with heels off loaded with pillows, suprapubic cath site and GT site cleansed with NS and new dsg applied, re
[2017-06-20 12:27] VITALS: BP 99/64
[2017-06-20 15:18] VITALS: BP 112/76
--- NOTE | 2017-06-20 15:22 | NUR ---
THIS RECORDER SPOKE WITH JUSTIN AT [facility] [phone], STATES WILL ACCEPT QUIRINO SAMPSON BACK TO THERE FACILITY TODAY
--- NOTE | 2017-06-20 15:37 | NUR ---
CLINICAL PHARMACY NOTE:AMIKACIN DOSING Subjective Amikacin dosing continue for this 57 y/o male 5'5" 122 lbs for suspected infection. Objective Temp 97.6 BUN 32(8/6) Scr 4.2(8/6) WBC 8.9 (8/6) Urine culture Pseudomonas A. sensitive to amikacin and Levaquin. Patient is getting dialysis. Assessment/Plan Pre HD level yesterday was 16.6. Since there is no HD today, no dose will be given. Will continue to dose as per pre-HD level.Will order random level at time of next dialysis (level not yet ordered). Will continue to monitor
--- NOTE | 2017-06-20 15:50 | NUR ---
called [facility] and report given to Talia
--- NOTE | 2017-06-20 16:00 | NUR ---
will leave midline on the right upper arm for IV abx at [facility]-no swelling/redness noted on site
--- NOTE | 2017-06-20 17:04 | NUR ---
sister Missy informed of discharge to [facility]
--- NOTE | 2017-06-20 17:30 | NUR ---
ambulance here- report given- taken per miguelangelrluanne in stable condition
[2017-06-21] MEDS ORDERED: LEVOFLOXACIN 250 MG TABLET PO SCH (12:00)
== END 2017-06-20 17:30 | DRG 853 ==
LOC: MED 21:26 → CCU 06-12 13:10 → TELE 06-19 18:35
PROVIDERS: ADMIT Internal Medicine Nephrology; ATTEND Internal Medicine
PROC: 0T29X0Z Change Drainage Device in Ureter, External Approach (ICD-10-PCS; principal; 2017-06-08)
PROC: 0JBR0ZZ Excision of Left Foot Subcutaneous Tissue and Fascia, Open Approach (ICD-10-PCS; 2017-06-08)
PROC: 5A1D60Z (ICD-10-PCS; 2017-06-09)
PROC: 05H533Z Insertion of Infusion Device into Right Subclavian Vein, Percutaneous Approach (ICD-10-PCS; 2017-06-13)
DX: A41.9 Sepsis, unspecified organism (principal); N18.6 End stage renal disease; R65.21 Severe sepsis with septic shock; J96.90 Respiratory failure, unspecified, unspecified whether with hypoxia or hypercapnia; L89.523 Pressure ulcer of left ankle, stage 3; N39.0 Urinary tract infection, site not specified; I12.0 Hypertensive chronic kidney disease with stage 5 chronic kidney disease or end stage renal disease; G82.20 Paraplegia, unspecified; I13.11 Hypertensive heart and chronic kidney disease without heart failure, with stage 5 chronic kidney disease, or end stage renal disease; L97.322 Non-pressure chronic ulcer of left ankle with fat layer exposed; Z43.5 Encounter for attention to cystostomy; Z46.6 Encounter for fitting and adjustment of urinary device; N31.9 Neuromuscular dysfunction of bladder, unspecified; D63.1 Anemia in chronic kidney disease; Z99.2 Dependence on renal dialysis; Q05.9 Spina bifida, unspecified; E11.22 Type 2 diabetes mellitus with diabetic chronic kidney disease; Z93.0 Tracheostomy status; Z93.59 Other cystostomy status; Z87.442 Personal history of urinary calculi; B96.5 Pseudomonas (aeruginosa) (mallei) (pseudomallei) as the cause of diseases classified elsewhere; Z93.2 Ileostomy status; R13.10 Dysphagia, unspecified; Z88.2 Allergy status to sulfonamides; D75.89 Other specified diseases of blood and blood-forming organs; E11.42 Type 2 diabetes mellitus with diabetic polyneuropathy; Z88.0 Allergy status to penicillin; R23.4 Changes in skin texture
CPT/HCPCS: 36415; 36569; 71010; 83735; 84100; 85025; 87040; 87070; 87077; 87086; 90937; 92526; 92610; 94664; A4217; A4663; C1751; J0278; J0885; J1580; J1815; J1956; J2060; J2405; J3490; J3590; J7030; J7040; J7042; J7050; J7060; J8597; P9047; Q0162